=== PATIENT | female | born 1975 | race Caucasian/White ===

== ENCOUNTER → 2017-11-13 13:00 | Outpatient (CLI) | payer BC, SELFPAY ==
--- NOTE | 2017-11-13 13:53 | DI.REPORT_ITS ---
SYMPTOM/DIAGNOSIS: ABNL UTERINE BLEEDING, N93.0 PELVIC ULTRASOUND: Transabdominal and transvaginal examination was performed. The uterus measures 11.1 cm. long by 5.7 cm. AP by 7.3 cm. transverse. There are at least two discrete uterine masses present, the largest is seen in the fundus and measures 3.4 by 3.3 by 4.7 cm. There is a second discrete mass seen in the right fundal region measuring 3.1 by 2.9 by 3.0 cm. These most likely reflect uterine fibroids. The endometrial stripe is not well visualized due to the fibroids. The right ovary measures 2.4 by 1.8 by 2.2 cm. The left ovary measures 3.7 by 2.3 by 3.4 cm. There are follicular cysts seen bilaterally. The largest is seen on the left and measures 2.3 cm. maximally. No suspicious ovarian masses are present. There is normal blood flow to the ovaries. No evidence of torsion is present. No free pelvic fluid or hydronephrosis is identified. IMPRESSION: Fibroid uterus.
== END ==
PROVIDERS: PCP Nurse Practitioner; Visit Provider Nurse Practitioner
DX: N93.0 Postcoital and contact bleeding (principal); D25.9 Leiomyoma of uterus, unspecified; N83.01 Follicular cyst of right ovary; N83.02 Follicular cyst of left ovary
CPT/HCPCS: 76830; 76856

== ENCOUNTER 2018-01-02 11:02 | Outpatient (CLI) | payer BC, SELFPAY ==
[2018-01-02 11:25] LABS: HCT 33.9 % (36.0-46.0); HGB 10.9 g/dL (12.0-15.5); Mean Corp. HGB Concentration 32.2 g/dL (32.0-36.0); Mean Corpuscular Hemoglobin 28.3 pg (27.0-33.0); Mean Corpuscular Volume 88.1 fL (80-95); Mean Platelet Volume 9.7 fL (8.0-11.0); Platelet Count 262 x1000/uL (130-400); RBC 3.85 m/cumm (4.00-5.20); RBC Distribution Width 12.2 % (11.7-14.6); White Blood Cell Count 4.45 k/cumm (4.4-10.8)
[2018-01-02 12:33] LABS: HCG Quant, Pregnancy < 1 mIU/mL (1-3)
== END 2018-01-02 11:22 ==
PROVIDERS: PCP Nurse Practitioner; Visit Provider Obstetrics & Gynecology
DX: N94.6 Dysmenorrhea, unspecified (principal); N94.9 Unspecified condition associated with female genital organs and menstrual cycle
CPT/HCPCS: 36415; 85027; 86850; 86900; 86901; 84702

== ENCOUNTER 2018-01-02 15:51 | Outpatient (REF) | payer BC, SELFPAY ==
--- NOTE | 2018-01-02 10:30 | ENDOMET_PTH ---
PATIENT: Jeri Lin LOC: [facility] U#:[id number] AGE/SX: 42/F ROOM: RE01/02/[address]: Sana Garcia MD : 1975 BED: DIS: 01/02/2018 SPEC #: [id number] RECD: 01/02/18 17:44 STATUS: RODO REQ #: [id number] KRISHNA: 01/02/18 10:[address]: Sana Garcia DEPT: Surgical Specimen RECD BY: Shawanda Tsang ENTERED: 01/02/18 17:45 SP TYPE: Endomet OTHR DR: Beronica Flores Tissues: 1 - ENDOMETRIUM BX/FRANSISCA Procedures: GROSS AND MICRO LEVEL 4 Comments: [id number]
== END 2018-01-02 16:11 ==
LOC: LBN 15:51
PROVIDERS: PCP Nurse Practitioner; Referring Provider Obstetrics & Gynecology; Visit Provider Obstetrics & Gynecology
DX: N94.6 Dysmenorrhea, unspecified (principal); N92.0 Excessive and frequent menstruation with regular cycle; N85.8 Other specified noninflammatory disorders of uterus; N83.8 Other noninflammatory disorders of ovary, fallopian tube and broad ligament
CPT/HCPCS: 88305

== ENCOUNTER 2018-01-03 06:08 | Day surgery (SDC) | payer BC, SELFPAY ==
[2018-01-03 06:23] VITALS: BP 137/93; PULSE 66; RESP 16; TEMP 36.8; O2SAT 100
--- NOTE | 2018-01-03 06:35 | W.PM.HP.N ---
Date of service: 01/03/18 Assessment and Plan (1) Menorrhagia with regular cycle: Current visit: Yes Status: Acute Menorraghia unresponsive to medical therapy discussed alternatives requests Novasure endometrial ablation r/b/a reviewed all questions asked and answered consents signed Procedure Hysteroscopy D+C Novasure Endometrial ablation History of Present Illness Chief Complaint: Menorraghia Narrative: 42 yo female with long standing complaints menorraghia non responsive to medical therapy scheduled for hysteroscopy D+C Novasure endometrial ablation Review of Systems Review of Systems All systems reviewed & are unremarkable except as noted in HPI and below PFSH Family History Mother No problems noted. Father Diabetes Essential hypertension Brother No problems noted. Grandfather Neoplasm Grandfather Neoplasm Medical History HSV-1 (herpes simplex virus 1) infection Hypothyroidism (acquired) Migraines Uterine fibroid (11/07/16) Social History Smoking/Tobacco Use Status: Former Tobacco Use Female Reproductive History Menstrual Duration of menses: 6-7 days Meds Home Medications Medication Instructions Recorded Confirmed Type ferrous sulfate [Iron] 325 mg PO DAILY 11/17/17 01/02/18 History levothyroxine 1 tab PO DAILY 90 Days #90 11/17/17 01/03/18 History clqcvtlx-ekkz-qwzk-FA-K-hb#244 1 ea PO DAILY 11/17/17 01/02/18 History [[employer] Mv Tablet] ibuprofen 800 mg PO PRN PRN 01/03/18 01/03/18 History Allergies Allergy/AdvReac Type Severity Reaction Status Date / Time No Known Allergies Allergy Unverified 01/03/18 06:21 Exam Const General: cooperative and healthy appearing Chest Chest: normal inspection of the chest Resp Effort & Inspection: normal respiratory effort Auscultation: clear to auscultation bilaterally Cardio Rate: regular rate Rhythm: regular rhythm Heart Sounds: S1 normal and S2 normal External Female Exam: external appearance normal Speculum Exam - Vagina: normal appearance of the vagina Speculum Exam - Cervix: normal appearance of the cervix Bimanual Exam- Vagina & Uterus: normal bimanual exam Bimanual Exam- Adnexa, other: normal adnexae Extrem General: normal to inspection Results Labs Endometrial biopsy performed 01/02/18
[2018-01-03] MEDS: Lactated Ringers 1,000 ML 125 ML IV (06:43)
--- NOTE | 2018-01-03 08:00 | ENDOMET_PTH ---
PATIENT: Jeri Lin LOC: [facility] U#:[id number] AGE/SX: 42/F ROOM: RE01/03/[address]: Sana Garcia MD : 1975 BED: DIS: 01/03/2018 SPEC #: [id number] RECD: 01/03/18 12:58 STATUS: RODO RETiarra #: [id number] KRISHNA: 01/03/18 08:[address]: Sana Garcia DEPT: Surgical Specimen RECD BY: Shawanda Tsang ENTERED: 01/03/18 12:59 SP TYPE: Endomet OTHR DR: Beronica Flores Tissues: 1 - ENDOMETRIUM BX/FRANSISCA Procedures: GROSS AND MICRO LEVEL 4 Comments: [id number]
[2018-01-03] MEDS: Ketorolac 15 MG/ML VIAL IVP (08:48)
--- NOTE | 2018-01-03 08:50 | W.PM.OP ---
Date of service: 01/03/18 Time of Service: 08:50 Operative Note DATE OF PROCEDURE: 01/03/18 PRE-OP DIAGNOSIS: Menorraghia POST-OP DIAGNOSIS: other (same + anterior submucosal fibroid) PROCEDURE: Hysteroscopy D+C Novasure Endometrial ablation Patient was brought to the operating room where she was properly identified she was then placed on the operating table in the dorsal supine position. MAC anesthesia was then administered and she was then placed in the dorsal lithotomy position and prepped and draped in normal sterile fashion. Formal timeout procedure was then performed with all surgical personnel present confirming patient and procedure. A bivalve speculum was placed in the vagina the cervix was visualized and grasped on the anterior lip with a single-tooth tenaculum. The hysteroscope was advanced into the uterine cavity without difficulty and a thorough inspection was performed with visualization of both tubal ostia as well as a moderately sized submucosal anterior fibroid. Sharp curettage was then performed and the endometrial curettings were sent to pathology for permanent evaluation. Attention was then turned to the NovaSure portion of the procedure. The NovaSure apparatus was advanced into the uterine cavity without difficulty Cavity length had been measured at 5.0 cm. Once the apparatus was deployed the uterine width was measured at 3.6. This was a power of 99. A uterine cavity assessment was adequate endometrial ablation was performed for 90 seconds. All equipment was removed from the uterus and cervix hemostasis was confirmed. Sponge count correct x2 The patient was awakened and transfered to PACU in stable condition. SURGEON: Sana Garcia ANESTHESIA: MAC ESTIMATED BLOOD LOSS: 50 PATHOLOGY: other (endometrial currettings) COMPLICATIONS: None Patient was transported to: PACU Patient's condition: stable Implants: none Indications: Menorraghia Findings: anterior submucosal fibroid uterine cavity length 5.0 Cavity width 3.6 pOWER 99 Procedure Description: She is positioning anesthesia is initiated. She was then positioned. A formal TIMEOUTprocedure was then performed and she received she is still. Hysteroscope was advanced into the into the uterine cavity with a 0 station is visualized.
--- NOTE | 2018-01-03 09:10 | W.PM.DSUDISC ---
Discharge Plan Disposition Patient Disposition: HOME Condition: Good Discharge Details Attending Provider: Sana Garcia Primary Care Provider: Beronica Flores Home Meds and New Rx's Prescriptions: No Action ferrous sulfate [Iron (ferrous sulfate)] 325 MG tablet 325 mg PO DAILY RF: 0 [id number]-[id number]-K-hb#244 [[employer]] 1 EACH tablet 1 ea PO DAILY RF: 0 levothyroxine 50 MCG tablet 1 tab PO DAILY 90 Days Qty: 90 RF: 0 ibuprofen 200 mg Tablet 800 mg PO PRN PRNRF: 0 Discharge Instructions Stand Alone Forms: DSU Post Gynecology Surgery Referrals: Sana Garcia [ [facility] STAFF PHYSICIAN] - 01/19/18 9:40 am Activity:: Activity as Tolerated Shower/Bathe:: 24 hours Diet:: As Tolerated Discharge Orders Discharge Orders: Discharge Order (Routine); Ordered 01/03/18 Ordered By: Sana Garcia DS: Diagnosis Discharge Diagnosis (1) Menorrhagia with regular cycle: Status: Acute
[2018-01-03 09:17] VITALS: BP 140/96; PULSE 63; RESP 16; TEMP 36.1; O2SAT 100
== END 2018-01-03 10:05 | disposition home or self-care (01) ==
PROVIDERS: PCP Nurse Practitioner; Visit Provider Obstetrics & Gynecology
PROC: 0UJD8ZZ Inspection of Uterus and Cervix, Via Natural or Artificial Opening Endoscopic (ICD-10-PCS; CPT 58555; principal; 2018-01-03 07:30)
PROC: (CPT 58353; 2018-01-03 07:30)
DX: N92.0 Excessive and frequent menstruation with regular cycle (principal)
CPT/HCPCS: 58563; 88305; NC; J1885; J2250; J2405

== ENCOUNTER 2018-05-21 14:35 | Outpatient (CLI) | payer OTHER, SELFPAY ==
[2018-05-21 15:02] LABS: HGB 12.5 g/dL (12.0-15.5); Mean Corp. HGB Concentration 32.9 g/dL (32.0-36.0); Mean Corpuscular Hemoglobin 28.5 pg (27.0-33.0); Mean Corpuscular Volume 86.6 fL (80-95); Mean Platelet Volume 10.4 fL (8.0-11.0); Platelet Count 198 x1000/uL (130-400); RBC 4.39 m/cumm (4.00-5.20); RBC Distribution Width 14.6 % (11.7-14.6); White Blood Cell Count 6.03 k/cumm (4.4-10.8)
[2018-05-21 16:03] LABS: Iron 309 ug/dL (50-175); Total Iron Binding Capacity 380 ug/dL (250-450); Transferrin Sat 81 % (15-50)
[2018-05-21 16:17] LABS: Ferritin 13 ng/mL (8-388)
== END 2018-05-21 14:55 ==
PROVIDERS: PCP Nurse Practitioner; Visit Provider Obstetrics & Gynecology
DX: D50.8 Other iron deficiency anemias (principal); E03.9 Hypothyroidism, unspecified
CPT/HCPCS: 36415; 85027; 82728; 83540; 83550

== ENCOUNTER 2020-06-12 02:25 | Outpatient (CLI) | payer OTHER, SELFPAY ==
[2020-06-12 10:43] LABS: HCT 31.9 % (36.0-46.0); HGB 9.1 g/dL (11.2-15.7)
[2020-06-12 11:45] LABS: TSH (W/Ref FT4) 3.05 uIU/mL (0.36-3.74)
== END 2020-06-12 02:26 | disposition home or self-care (01) ==
LOC: LBO 02:25
PROVIDERS: PCP Nurse Practitioner; Visit Provider Nurse Practitioner Family
DX: N92.0 Excessive and frequent menstruation with regular cycle (principal)
CPT/HCPCS: 36415; 84443; 85014; 85018

== ENCOUNTER 2020-06-12 10:46 | Outpatient (REF) | payer OTHER, SELFPAY ==
--- NOTE | 2020-06-12 10:00 | PAPFT_PTH ---
PATIENT: Jeri Lin LOC: [facility] U#:[id number] AGE/SX: 45/F ROOM: RE06/12/[address]: CHELSEA Stevens : 1975 BED: DIS: 06/12/2020 SPEC #: [id number] RECD: 06/12/20 12:59 STATUS: RODO RETiarra #: [id number] KRISHNA: 06/12/20 10:[address]: Gely [place] DEPT: [facility] Cytology RECD BY: Shawanda Tsang ENTERED: 06/12/20 12:59 SP TYPE: PAPFT OTHR DR: Beronica Flores Tissues: 1 - CX/ENDOCX FOR PAP SMEARS Procedures: PAP THIN PREP/UVM Screening HPV DNA PROBE Comments: [id number]
== END 2020-06-12 10:47 | disposition home or self-care (01) ==
LOC: LBN 10:46
PROVIDERS: PCP Nurse Practitioner; Visit Provider Nurse Practitioner Family
DX: Z12.4 Encounter for screening for malignant neoplasm of cervix (principal); Z11.51 Encounter for screening for human papillomavirus (HPV)
CPT/HCPCS: 88142; 87624

== ENCOUNTER 2020-06-19 03:57 | Outpatient (CLI) | payer OTHER, SELFPAY ==
--- NOTE | 2020-06-19 06:45 | DI.MAMMO_ITS ---
EXAM: MAMMO SCREENING CLINICAL HISTORY: screening,Z12.39 TECHNIQUE: Mammograms were interpreted according to the usual protocol including computer analysis w [employer] CAD system, tomosynthesis and C-view imaging. COMPARISON: Baseline examination. FINDINGS: The breasts are composed of heterogeneously dense fibroglandular densities, Breast Density category C . No suspicious masses or suspicious microcalcifications are seen. No skin thickening or abnormal axillary lymph nodes are seen. There has been no significant change from prior exams. IMPRESSION: BI-RADS Category 1, Negative mammogram. Yearly screening mammography is recommended. Breast Density Category C, heterogeneously Dense. The mammogram demonstrates the patient's breast tissue is dense. Dense breast tissue is very common a nd is not abnormal but dense breast tissue can make it harder to find cancer on a mammogram. Also, de nse breast tissue may increase breast cancer risk. This information about the result of the mammogram report was provided to the patient to raise their awareness. Use this report when you speak with the patient about their risks for breast cancer, which includes their family history. At that time, you may recommend additional screening tests (Ultrasound or MRI) as they might be useful based on their r isk. A negative radiographic report should not delay biopsy if a dominant or clinically suspicious mass is present. Up to ten percent of cancers are not identified on mammography. A negative report may reinforce clinical impression. Adenosis and dense breasts may obscure an underlying neoplasm. False positive reports average 6 to 10%.
== END 2020-06-19 04:17 ==
PROVIDERS: PCP Nurse Practitioner; Visit Provider Nurse Practitioner Family
DX: Z12.31 Encounter for screening mammogram for malignant neoplasm of breast (principal)
CPT/HCPCS: 77063; 77067

== ENCOUNTER 2020-09-28 03:16 | Outpatient (CLI) | payer OTHER, SELFPAY ==
[2020-09-28 13:17] LABS: Abs Immature Grans 0.03 10^3/uL (0.0-0.06); Absolute Basophil Count 0.03 10^3/uL (0.0-0.2); Absolute Lymphocyte Count 1.16 10^3/uL (1.2-3.4); Absolute Monocyte Count 0.38 10^3/uL (0.1-0.8); Absolute Neutrophil Count 3.16 10^3/uL (1.2-6.7); Basophils % 0.6; Eosinophils % 2.1; HCT 28.1 % (36.0-46.0); Immature Grans % 0.6; Lymphocytes % 23.9; MCH 22.9 pg (27.0-33.0); MCHC 28.5 % (32.0-36.0); MCV 80.5 fL (80-95); MPV 9.7 fL (8.0-11.0); Monocytes % 7.8; Nucleated RBC 0 %; Platelet Count 319 10^3/uL (130-400); RBC 3.49 10^6/uL (3.93-5.22); RDW 16.5 % (11.7-14.6); RDW-SD 48.2 fL; WBC 4.86 10^3/uL (4.4-10.8)
[2020-09-28 13:43] LABS: Anisocytosis 1+; Diff Comment Diff Reviewed; Hypochromasia 2+; Polychromasia Present
[2020-09-28 13:44] LABS: Poikilocytes 2+
[2020-09-28 14:26] LABS: TSH (W/Ref FT4) 3.53 uIU/mL (0.36-3.74)
[2020-09-28 22:32] LABS: Prolactin 8.7 ng/mL (See Table)
== END 2020-09-28 03:17 | disposition home or self-care (01) ==
LOC: LBO 03:16
PROVIDERS: PCP Nurse Practitioner; Visit Provider Obstetrics & Gynecology
DX: D25.9 Leiomyoma of uterus, unspecified (principal); D50.8 Other iron deficiency anemias; N92.0 Excessive and frequent menstruation with regular cycle
CPT/HCPCS: 36415; 84146; 84443; 85025

== ENCOUNTER 2020-10-23 11:36 | Outpatient (REF) | payer OTHER, SELFPAY ==
--- NOTE | 2020-10-23 11:10 | ENDOMET_PTH ---
PATIENT: Jeri Lin LOC: [facility] U#:[id number] AGE/SX: 45/F ROOM: RE10/23/[address]: Cindy Corey DO : 1975 BED: DIS: 10/23/2020 SPEC #: [id number] RECD: 10/23/20 13:05 STATUS: RODO RE #: [id number] KRISHNA: 10/23/20 11:[address]: Cindy Corey DEPT: Surgical Specimen RECD BY: Shawanda Tsang ENTERED: 10/23/20 13:05 SP TYPE: Endomet OTHR DR: Beronica Flores Tissues: 1 - ENDOMETRIUM BX/FRANSISCA Procedures: GROSS AND MICRO LEVEL 4 Comments: [id number]
== END 2020-10-23 11:37 | disposition home or self-care (01) ==
LOC: NCHCN 11:36
PROVIDERS: PCP Nurse Practitioner; Visit Provider Obstetrics & Gynecology
DX: N93.8 Other specified abnormal uterine and vaginal bleeding (principal); D25.9 Leiomyoma of uterus, unspecified; N85.01 Benign endometrial hyperplasia
CPT/HCPCS: 88305

== ENCOUNTER 2020-11-30 03:02 | Outpatient (CLI) | payer OTHER, SELFPAY ==
[2020-11-30 10:05] LABS: Abs Immature Grans 0.01 10^3/uL (0.0-0.06); Absolute Basophil Count 0.04 10^3/uL (0.0-0.2); Absolute Eosinophil Count 0.06 10^3/uL (0.0-0.7); Absolute Lymphocyte Count 0.96 10^3/uL (1.2-3.4); Absolute Monocyte Count 0.46 10^3/uL (0.1-0.8); Basophils % 0.8; Eosinophils % 1.2; HCT 33.8 % (36.0-46.0); HGB 10.2 g/dL (11.2-15.7); Immature Grans % 0.2; Lymphocytes % 19.5; MCH 26.4 pg (27.0-33.0); MCHC 30.2 % (32.0-36.0); MCV 87.6 fL (80-95); MPV 9.7 fL (8.0-11.0); Monocytes % 9.3; Nucleated RBC 0 %; Platelet Count 345 10^3/uL (130-400); RBC 3.86 10^6/uL (3.93-5.22); RDW-SD 57.4 fL; WBC 4.93 10^3/uL (4.4-10.8)
[2020-11-30 15:44] LABS: Source Nasal/Nares
[2020-11-30 19:26] LABS: COVID-19 PCR Negative (Negative)
== END 2020-11-30 03:03 | disposition home or self-care (01) ==
LOC: LBO 03:02
PROVIDERS: PCP Nurse Practitioner; Visit Provider Obstetrics & Gynecology
DX: N92.0 Excessive and frequent menstruation with regular cycle (principal); D25.9 Leiomyoma of uterus, unspecified; Z20.822 Contact with and (suspected) exposure to COVID-19; Z01.818 Encounter for other preprocedural examination; Z01.812 Encounter for preprocedural laboratory examination
CPT/HCPCS: 36415; 86850; 86900; 86901; 87635; 85025

== ENCOUNTER 2020-12-02 17:05 | Observation (INO) | payer OTHER, SELFPAY ==
[2020-12-02] VITALS (9 sets, daily range): BP systolic 87–146; BP diastolic 57–93; PULSE 64–86; RESP 14–28; TEMP 36.1–36.7; O2SAT 95–100; BMI 28.0
[2020-12-02] MEDS: Lactated Ringers 1,000 ML 125 ML IV ×2 (10:59→17:04)
--- NOTE | 2020-12-02 12:04 | W.ANESPRE ---
General Info Date of Service Date Performed: 12/02/20 Height: 5 ft 3.5 in Weight: 72.8 kg Body Mass Index (BMI): 28.0 Surgical Procedure: Operation Date: 12/02/20 12:40 Proposed Procedures Side Surgeon p Hysterectomy Abdominal total,Bilateral Salpingectomy & removal of vulvar lesion Cindy Corey DO Meds Allergies and Home Medications Allergies Allergy/AdvReac Type Severity Reaction Status Date / Time No Known Allergies Allergy Unverified 12/01/20 11:37 Home Medication Medication Instructions Recorded ferrous sulfate [Iron] 325 mg PO BID 11/17/17 levothyroxine 1 tab PO DAILY 90 Days #90 11/17/17 ibuprofen 800 mg PO PRN PRN 01/03/18 prenat.vits,mckinley,cwf-jzqc-rrazi 1 tab PO DAILY 09/25/20 norethindrone acetate 5 mg tablet 5 mg PO .Twice daily #60 tab 11/05/20 Current Visit Medications: Current Medications Generic Name Dose Route Start Last Admin Trade Name Freq PRN Reason Stop Dose Admin Ringer's Solution 1,000 mls @ 125 mls/hr 12/02/20 06:00 12/02/20 10:59 IV 12/31/20 23:59 125 mls/hr INFUSION FIDEL Administration Cefazolin Sodium 2,000 mg/ 100 mls @ 200 mls/hr 12/02/20 06:00 Sodium Chloride IVPB 12/02/20 23:59 PREOP FIDEL IV Miscellaneous Supplies 1 each 12/02/20 06:00 Iv Access IV 12/31/20 23:59 DIRECTED FIDEL Sodium Chloride 0 ml 12/02/20 06:00 Normal Saline Flush 10 Ml Syr IV 12/31/20 23:59 PRN PRN Sodium Chloride 0 ml 12/02/20 06:00 Normal Saline 10 Ml Vial IJ 12/31/20 23:59 DIRECTED PRN Sterile Water 0 ml 12/02/20 06:00 Water,Injection,Sterile 10 Ml Vial IJ 12/31/20 23:59 DIRECTED PRN PFSH Active Problems Active Problems: Problem Status Onset Code Menorrhagia with regular cycle N92.0 Acquired hypothyroidism 11/09/17 E03.9 Other iron deficiency anemias 11/09/17 D50.8 Uterine fibroid 11/17/17 D25.9 Medical History Medical History HSV-1 (herpes simplex virus 1) infection Hypothyroidism (acquired) Migraines Uterine fibroid (11/07/16) AUB, fibroid uterus confirmed by us Surgical History Surgical History (Updated 12/02/20 @ 10:32 by Mary Jacksno) History of endometrial ablation Tobacco Smoking/Tobacco Use Status: Former Tobacco Use Alcohol Alcohol Intake: current Alcohol intake frequency: a few times a week Substance Use Substance use: Never Substance use type: does not use Vital Signs and Lab Results Vital Signs Most Recent Vital Signs in EMR: Most Recent Vital Signs Temp Pulse Resp BP Pulse Ox 36.2 C L 85 16 146/93 H 100 12/02/20 10:20 12/02/20 10:20 12/02/20 10:20 12/02/20 10:20 12/02/20 10:20 Point of Care Results Point of Care Results: POC- Test(urine) Negative 12/02/20 10:39 Lab Results Blood Type / Crossmatch: Patient ABO/Rh A Positive 11/30/20 10:02 11/30/20 Antibody Screen NEGATIVE 11/30/20 10:02 11/30/20 Complete Blood Count: White Blood Count 4.93 10^3/uL (4.4-10.8) 11/30/20 10:02 11/30/20 Red Blood Count 3.86 10^6/uL (3.93-5.22) L 11/30/20 10:02 11/30/20 Hemoglobin 10.2 g/dL (11.2-15.7) L 11/30/20 10:02 11/30/20 Hematocrit 33.8 % (36.0-46.0) L 11/30/20 10:02 11/30/20 Platelet Count 345 10^3/uL (130-400) 11/30/20 10:02 11/30/20 Complete Metabolic Panel: No Data to Display Liver Function Panel: No Data to Display Coagulation Panel: No Data to Display Cardiac Panel: No Data to Display Arterial Blood Gas: No Data to Display Venous Blood Gas: No Data to Display Pancreas Panel: No Data to Display Thyroid Panel: No Data to Display Infectious Disease: Coronavirus (COVID-19)(PCR) Negative (Negative) 11/30/20 10:27 11/30/20 Coronavirus 2019 Source Nasal/Nares 11/30/20 10:27 11/30/20 Blood Cultures: No Data to Display Toxicology Panel: No Data to Display Panel: No Data to Display Anesthesia Assessment and Plan Anesthesia History Personal History: No History of General Anesthesia Family History: No Family History of Anesthesia Complications Exercise Tolerance Exercise Tolerance: Metabolic Equivalents>4 Pertinent Negatives Pertinent Negatives: No Symptoms of GERD, No Major Cardiovascular Symptoms or Complaints, No Major Pulmonary Symptoms or Complaints and No History of CVA/TIA Cardiac & Pulmonary Exam Cardiac Exam: Normal S1/S2 Heart Sounds Pulmonary Exam: Clear Bilateral Breath Sounds Airway Exam Known Difficult Airway: No Mallampati Class: 2 Mouth Opening: Normal (> 3cm) Thyromental Distance: Greater than 3 cm Neck Range of Motion: Full ROM Neck Circumference: Normal Teeth Condition: Normal Dentition ASA Classification ASA Score: ASA 2 Emergency Case?: No NPO Status NPO Status: NPO Clears >2 hours, Solids >8 hours Status Status: Negative HCG Anesthesia Plan Resuscitation Status: Full Code Anesthesia Technique: General Anesthesia Airway Planned: Endotracheal Tube Monitors Used: Standard Monitors
[2020-12-02] MEDS: ceFAZolin 2,000 MG in Normal Saline 100 ML 200 MG IVPB (14:18)
--- NOTE | 2020-12-02 14:45 | UTER_PTH ---
PATIENT: Jeri Lin LOC: [facility] U#:[id number] AGE/SX: 45/F ROOM: OBS.306 RE12/02/[address]: Cindy Corey DO : 1975 BED: A DIS: 12/03/2020 SPEC #: [id number] RECD: 12/02/20 18:34 STATUS: RODO REQ #: [id number] KRISHNA: 12/02/20 14:[address]: Cindy Corey DEPT: Surgical Specimen RECD BY: Shawanda Tsang ENTERED: 12/02/20 18:36 SP TYPE: UTER OTHR DR: Beronica Flores Tissues: 1 - VULVA BIOPSY 2 - UTERUS W OR W/O OVARIES(NOT TUMOR/PROLAPSE) Procedures: GROSS AND MICRO LEVEL 4 GROSS AND MICRO LEVEL 5 Comments: [id number]
[2020-12-02] MEDS: Silver Nitrate Stick 1 EACH (14:56)
[2020-12-02] MEDS: Bupivacaine 0.25% Pres-Free 30 ML VIAL (14:57)
[2020-12-02] MEDS: Cellulose,Oxidized 4X8 1 PACKET MC (16:40)
--- NOTE | 2020-12-02 17:16 | ROE_ITS ---
Date of service: 12/02/20 Time of Service: 17:17 Operative Note Operative Note DATE OF PROCEDURE: 12/02/20 PRE-OP DIAGNOSIS: Symptomatic uterine fibroids, anemia, vulvar lesion POST-OP DIAGNOSIS: same PROCEDURE: Total abdominal hysterectomy with bilateral salpingectomy, excision of vulvar lesions, bladder cystoscopy SURGEON: Cindy Corey ASSISTING SURGEON: Verna Hoover ANESTHESIA TYPE: Local By Surgeon, General LMA/ETT and Spinal Refer to Anesthesia Record ESTIMATED BLOOD LOSS: 450 PATHOLOGY: other (1. Vulvar lesions 2. Uterus, fallopian tube, cervix) COMPLICATIONS: None Patient was transported to: PACU Indications: Bothersome vulvar lesions x2. Symptomatic bulky fibroid uterus with anemia, nonresponsive to medical therapy Findings: 2 small plaque-like lesions of the posterior fourchette. 14 weeks size bulky fibroid uterus with 8 cm fibroid prolapsed into the vaginal vault. Normal-appearing tubes. Normal-appearing ovaries. Bladder atraumatic with patent functioning ureters Procedure Description: After full informed consent was obtained, patient was taken the operating suite. She was placed in the seated position and spinal anesthesia administered, tested and found to be adequate. She is then placed in the dorsal supine position and endotracheal intubation performed per the administration of general anesthesia with ease. At this point she was prepped and draped in the usual sterile fashion. Attention was turned to the vaginal vault where there were noted to be 2 lesions of the left labia minora near to the posterior fourchette. These were elevated with a pickup and excised with a scalpel. The base was cauterized with silver nitrate. Oswald catheter had been inserted for continuous bladder drainage. Exam under anesthesia revealed a uterus that is approximately 14 to 16 weeks size, bulky, globular, with approx imately 8 cm fibroid prolapsed into the vaginal vault. At this point attention was turned to the abdomen where after infiltration of quarter percent Marcaine and Exparel a Pfannenstiel skin incision was made. It was continued down to the underlying fascia which was nicked in the midline and fascial incision extended laterally. The fascia was then split from the rectus muscles. Rectus muscle sp lit in the midline, peritoneum identified tented up and entered sharply and the peritoneal incision extended superiorly and inferiorly. At this point in moderate Trendelenburg position bowel was packed away an Binta'Nader-O'Doan self-retaining retractor was placed within. The uterus was noted to be globular with multiple fibroids both in the right fundal region, left mid body, and the previously mentioned fibroid prolapsed through the cervix. Initially attention was turned to the left fallopian tube which was cut transected and ligated. The left round ligament identified tented up suture-ligated and transected allowing visualization into the left round ligament. The left bladder flap was created on the left. The left utero-ovarian ligament was identified clamped transected and ligated. A similar procedure was carried out on the right fallopian tube, right round ligament, and completion of the bladder flap. The right utero- ovarian ligament was also identified clamped transected and ligated. With sharp tenaculum the uterus was elevated out of the pelvis. In a systematic fashion the uterine artery pedicles were clamped transected and ligated on the right and the left. Due to significant grogginess due to intramural and intracavitary fibroids the decision was made to enter anteriorly after the bladder had been pushed low below the cervix. The anterior lower uterine segment was entered and fibroid was noted to be attached to the fundal region of the endometrial cavity prolapsed through the cervix into the vagina. In a systematic fashion with Zeppelin clamps the lower uterine segment of the uterus was clamped transected and suture ligated. This allowed delivery of the uterine fibroid and uterine fundus. Again attention was turned to the remaining tissue which was noted to be a posterior aspect of the lower uterine segment. This was elevated, clamped, transected and ligated. The vaginal cuff was then identified and closed using 0 Vicryl suture in a running locked fashion. Abdomen was then irrigated with copious amounts of normal saline. There was an area that was not hemostatic in the area of the right corner which was oversewn with 3-0 chromic suture. Please of Surgicel was placed over the vaginal cuff due to her moderate areas of denuded serosa. At this point all pedicles were inspected and found to be hemostatic. O'Nader-O'Doan self-retaining retractor was removed from the abdomen as were all laparotomy sponges. Fascial incision was closed using 0 Vicryl suture in a running fashion. Subcutaneous tissue irrigated with copious amounts of normal saline. Subcutaneous space reapproximated with 3-0 Vicryl suture in a simple interrupted fashion. Skin edge was reapproximated with 4-0 undyed Monocryl in a subcuticular fashion and Steri-Strips were placed. Due to the expansive nature of the fibroids in the lower uterine segment and close proximity to the pelvic sidewall decision was made for cystoscopy to ensure the bladder was atraumatic and ureters are functioning normally. After sterile dressing was placed on the abdominal incision patient was redraped in a frog-leg position and with a 30 degree cystoscope after intravascular indigo carmine given the entire bladder dome, and trigone were inspected and found to be atraumatic. There were noted to be jets of blue dyed urine from each ureteric orifice. At this point once assured that both ureters and bladder were uninjured cystoscopy was terminated. Oswald catheter was then reinserted. The patient awoke from anesthesia with ease and was taken to the recovery room in stable condition. EBL: 450 cc Complications: None apparent Pathology 1 vulvar lesion 2 uterus, fallopian tubes, cervix, fibroids. Fluids: Crystalloid per anesthesia
--- NOTE | 2020-12-02 17:46 | W.ANESPOSTOP ---
Postoperative Evaluation Date, Time and Location Date Performed: 12/02/20 Time Performed: 17:46 Patient Location: PACU Vital Signs Most Recent Imported Vital Signs: Most Recent Vital Signs Temp Pulse Resp BP Pulse Ox 36.1 C L 80 24 107/70 98 12/02/20 17:40 12/02/20 17:40 12/02/20 17:40 12/02/20 17:40 12/02/20 17:40 Pain Score Most Recent Pain Score: Most Recent Pain Score Pain Level 0 12/02/20 17:40 Assessment Mental Status: Arousable with meaningful communication Airway and Respiratory Function: Patent airway with normal (patient baseline) respiratory exam Cardiovascular Function: Hemodynamically Stable Hydration Status: Adequately Hydrated Nausea & Vomiting: No Nausea or Vomiting Pain: Pt. Denies Any Pain Peripheral Nerve Block: Patient did not receive a nerve block
[2020-12-02] MEDS: Docusate Sodium 100 MG CAP PO (21:45)
[2020-12-02] MEDS: Ketorolac 30 MG/ML VIAL IVP (21:45)
[2020-12-02] MEDS: Ondansetron 4 MG/2 ML VIAL IVP (21:57)
[2020-12-03] MEDS: Lactated Ringers 1,000 ML 125 ML IV (00:05)
[2020-12-03 00:25] VITALS: BP 115/78; PULSE 78; RESP 16; TEMP 36.5; O2SAT 98
[2020-12-03] MEDS: Ketorolac 30 MG/ML VIAL IVP ×2 (04:07→09:14)
[2020-12-03] MEDS: Levothyroxine 50 MCG TAB PO (06:17)
[2020-12-03 07:07] LABS: HCT 24.5 % (36.0-46.0); HGB 7.5 g/dL (11.2-15.7); MCH 27.1 pg (27.0-33.0); MCHC 30.6 % (32.0-36.0); MCV 88.4 fL (80-95); MPV 10.5 fL (8.0-11.0); Platelet Count 270 10^3/uL (130-400); RBC 2.77 10^6/uL (3.93-5.22); RDW 17.8 % (11.7-14.6); RDW-SD 57.7 fL; WBC 9.25 10^3/uL (4.4-10.8)
[2020-12-03 08:13] LABS: ALT 31 U/L (14-59); AST 18 U/L (15-37); Albumin 2.6 g/dL (3.4-5.0); Alkaline Phosphatase 31 U/L (46-116); Anion Gap 6.2 mmol/L (3-11); BUN 10 mg/dL (7-18); Bilirubin, Total 0.4 mg/dL (0.2-1.0); CO2 26.8 mmol/L (21.0-32.0); CREATININE 1.1 mg/dL (0.55-1.02); Calcium 7.8 mg/dL (8.5-10.1); Chloride 107 mmol/L (98-107); Estimated GFR 53.47 (mL/min/1.73m2); Glucose 111 mg/dL (74-106); Potassium 4.3 mmol/L (3.5-5.1); Sodium 140 mmol/L (136-145)
[2020-12-03] MEDS: Docusate Sodium 100 MG CAP PO (09:14)
[2020-12-03 09:25] VITALS: BP 116/64; PULSE 62; RESP 14; TEMP 36.9; O2SAT 97
--- NOTE | 2020-12-03 09:46 | W.PM.PROGNOT ---
Date of Service Date of service: 12/03/20 Time of Service: 09:46 Subjective Subjective Patient reports: feels better, tolerating liquids well, tolerating a regular diet, flatus and afebrile; denies nausea, vomiting and fever Interval history since last seen: Patient seen and examined postoperative day #1 status post total abdominal hysterectomy with bilateral salpingectomy for symptomatic anemia and large uterine fibroids. She is doing well today. She is ambulating, tolerating a regular diet and oral pain medication with stable vital signs. Her Oswald catheter is out. Her hemoglobin this morning is 7.5, which is not unexpected in light of her blood loss and her chronic anemia. She is asymptomatic from this. She will have her IV saline lock and removed later today. She desires discharge home today. Exam Const General: cooperative, healthy appearing, comfortable, no acute distress, well developed and well groomed Eyes General: appearance normal, both eyes and all related structures Resp Effort & Inspection: normal respiratory effort Auscultation: clear to auscultation bilaterally, no rales, no rhonchi and no wheezes Cardio Rate: regular rate Rhythm: regular rhythm GI Inspection: normal to inspection and incision (Clean dry, intact, slight ecchymosis) Palpation: soft, not firm, no guarding, no masses, not rigid and tender Auscultation: normal bowel sounds Skin General skin exam: no rashes or lesions noted Neuro General: patient alert, patient awake and patient oriented x3 Cranial Nerves: CN's II-XI intact bilaterally Extrem General: normal to inspection, no clubbing, cyanosis or edema, no pedal edema and no calf tenderness Psych Appearance: grossly normal Mental Status: mental status grossly normal Speech and Movement: speech and movement normal Mood: congruent mood Affect: normal affect Attitude: cooperative Thought Process: normal Thought Content: normal Insight: insight good Judgment: judgment good Objective Last Vital Signs Temp 98.4 F 12/03/20 09:25 Pulse 62 12/03/20 09:25 Resp 14 12/03/20 09:25 BP 116/64 12/03/20 09:25 Pulse Ox 97 12/03/20 09:25 Laboratory Results - last 24 hr 12/03/20 12/03/20 06:45 06:45 WBC 9.25 RBC 2.77 L Hgb 7.5 L D Hct 24.5 L D MCV 88.4 MCH 27.1 MCHC 30.6 L RDW 17.8 H Plt Count 270 MPV 10.5 Sodium 140 Potassium 4.3 Chloride 107 Carbon Dioxide 26.8 Anion Gap 6.2 BUN 10 Creatinine 1.1 H Estimated GFR/1.73 m2 53.47 Glucose 111 H Calcium 7.8 L Total Bilirubin 0.4 AST 18 ALT 31 Alkaline Phosphatase 31 L Total Protein 5.0 L Albumin 2.6 L
--- NOTE | 2020-12-03 09:55 | DSE_ITS ---
Date of service: 12/03/20 Time of Service: 09:56 DS: Diagnosis Discharge Diagnosis (1) Status post total abdominal hysterectomy: Status: Acute Asessment and Plan: Patient is postoperative day #1 status post total abdominal hysterectomy with bilateral salpingectomy due to symptomatic anemia and fibroid uterus. She is doing well. She will be discharged home. She will follow up in the office in 2 weeks in 6 weeks. She will continue with pelvic rest and no heavy lifting for the next 6 weeks. Her diet will be as tolerated. Her prescriptions have been sent to the pharmacy. She will continue on supplemental iron for approximately 6 weeks time. (2) Other iron deficiency anemias: Status: Acute Discharge Plan Disposition Patient Disposition: HOME Condition: Good Discharge Details Admit Date/Time: 12/02/20 17:05 Admit Provider: Cindy Corey Attending Provider: Cindy Corey Primary Care Provider: Beronica Flores Hospital Course Hospital Course: Patient underwent a total abdominal hysterectomy with bilateral salpingectomy on 12/02/2020. She had a repeat intraoperative course with approximately 450 cc blood loss. She had uncomplicated postoperative course and was ambulating, tolerating a regular diet and oral pain medication with stable vital signs on postoperative day #1. She is able to void without difficulty she is passing flatus. She has good pain control. She will be discharged home later today tolerating oral pain medication and regular diet. Pathology is pending. Home Meds and New Rx's Prescriptions: New ibuprofen 800 mg tablet 800 mg PO Q8H PRNQty: 30 RF: 1 oxycodone-acetaminophen [Percocet] 5-325 mg tablet 1 tab PO Q8H PRNQty: 14 RF: 0 docusate sodium [Colace] 100 mg capsule 100 mg PO BID Qty: 30 RF: 0 Continued prenat.vits,mckinley,azf-hhbe-cyqlx Tablet 1 tab PO DAILY RF: 0 ferrous sulfate [Iron (ferrous sulfate)] 325 MG tablet 325 mg PO BID RF: 0 levothyroxine 50 MCG tablet 1 tab PO DAILY 90 Days Qty: 90 RF: 0 norethindrone acetate [Aygestin] 5 mg tablet 5 mg PO .Twice daily Qty: 60 RF: 1 ibuprofen 200 mg Tablet 800 mg PO PRN PRNRF: 0 Discharge Instructions Care Plan Goals: Follow-up with Dr. Corey in [facility] in 2 and 6 weeks Stand Alone Forms: DSU Post Gynecology Surgery Activity:: Pelvic rest and no heavy Equipment/Supplies:: No Equipment Needed Diet:: As Tolerated Discharge Orders Discharge Orders: Discharge Order (Routine); Ordered 12/03/20 Ordered By: Cindy Corey DS: Summary Time Spent with Patient providing and/or coordinating discharge services: Less than 30 minutes Status at Discharge Functional status at discharge: independent ambulation Overall status at discharge: patient is back to baseline Mental Status: mental status grossly normal Speech and Movement: speech and movement normal Mood: congruent mood Affect: normal affect Exam Narrative Exam Narrative: Please see physical exam from progress note dated 12/03/2020 Psych Mental Status: mental status grossly normal Speech and Movement: speech and movement normal Mood: congruent mood Affect: normal affect DS: Data Vitals/I&O Vitals and I&O: Vital Signs Temperature 98.4 F 12/03/20 09:25 Temperature Source Oral 12/03/20 09:25 Pulse 62 12/03/20 09:25 Pulse Rhythm Regular 12/03/20 09:25 Respiratory Rate 14 12/03/20 09:25 Respiratory Effort Non-Labored 12/03/20 09:25 Respiratory Depth Normal 12/03/20 09:25 Respiratory Pattern Normal 12/03/20 09:25 Blood Pressure 116/64 12/03/20 09:25 Pulse Oximetry 97 12/03/20 09:25 Respiratory End-tidal CO2 33 12/02/20 17:45 Oxygen Delivery Method Room Air 12/03/20 09:25 Oxygen Flow Rate 0 12/03/20 09:25 Pain Level 0 12/03/20 00:25 Intake & Output 12/02/20 12/02/20 12/03/20 11:59 23:59 11:59 Intake Total 2105 / 2105 2155.000 / 2155.000 Output Total 975 / 975 450 / 450 Balance 1130 / 1130 1705.000 / 1705.000 Weight 160 lb 7.944 oz 160 lb 7.944 oz Intake: IV 1755 / 1755 1955.000 / 1955.000 Oral 350 / 350 200 / 200 Output: Urine 525 / 525 450 / 450 Estimated Blood Loss 450 / 450 Other: Urine Color Indigo Indigo Urine Appearance Clear Clear Emesis Description None Data Completed and Pending Labs on day of discharge: Labs from last 24 hours 12/03/20 12/03/20 06:45 06:45 WBC 9.25 RBC 2.77 L Hgb 7.5 L D Hct 24.5 L D MCV 88.4 MCH 27.1 MCHC 30.6 L RDW 17.8 H Plt Count 270 MPV 10.5 Sodium 140 Potassium 4.3 Chloride 107 Carbon Dioxide 26.8 Anion Gap 6.2 BUN 10 Creatinine 1.1 H Estimated GFR/1.73 m2 53.47 Glucose 111 H Calcium 7.8 L Total Bilirubin 0.4 AST 18 ALT 31 Alkaline Phosphatase 31 L Total Protein 5.0 L Albumin 2.6 L [facility] Medical History HSV-1 (herpes simplex virus 1) infection Hypothyroidism (acquired) Migraines Uterine fibroid (11/07/16) AUB, fibroid uterus confirmed by us Surgical History History of endometrial ablation Status post total abdominal hysterectomy Family History Mother No problems noted. Father Diabetes Essential hypertension Brother No problems noted. Grandfather Neoplasm unsure of kind Grandfather Neoplasm unsure of kind Social History Smoking/Tobacco Use Status: Former Tobacco Use Quit Date: 04/10/10 Smoking risk assessment performed?: Yes Alcohol Intake: current Alcohol Intake frequency: a few times a week Drug use: Never Substance use type: does not use Do you feel safe at home: Yes Do you feel safe in your relationship?: Yes Female Reproductive History Menstrual Duration of menses: 6-7 days
[2020-12-03] MEDS: Ibuprofen 600 MG TAB PO (13:59)
== END 2020-12-03 15:35 | disposition home or self-care (01) ==
LOC: SUR 17:50 → OBS 17:53
PROVIDERS: Obstetrics & Gynecology Gynecology; Admitting Provider Obstetrics & Gynecology; PCP Nurse Practitioner; Visit Provider Obstetrics & Gynecology
PROC: 0UT90ZZ Resection of Uterus, Open Approach (ICD-10-PCS; CPT 58150; principal; 2020-12-02 12:30)
DX: D07.1 Carcinoma in situ of vulva (principal); D25.0 Submucous leiomyoma of uterus; D25.1 Intramural leiomyoma of uterus; D25.2 Subserosal leiomyoma of uterus; D50.8 Other iron deficiency anemias; N92.0 Excessive and frequent menstruation with regular cycle; E03.9 Hypothyroidism, unspecified; G43.909 Migraine, unspecified, not intractable, without status migrainosus; B00.9 Herpesviral infection, unspecified; N90.89 Other specified noninflammatory disorders of vulva and perineum
CPT/HCPCS: 58150; 52000; 11620; 36415; 80053; 81025; 85027; 88305; 88307; J0690; J1100; J1885; J2250; J2405

== ENCOUNTER 2023-05-08 09:35 | Day surgery (SDC) | payer OTHER, SELFPAY ==
--- NOTE | 2023-05-07 14:50 | W.PM.DSUDISC ---
Date of service: 05/08/23 Time of Service: 12:38 Discharge Plan Disposition Patient Disposition: Home Condition: Good Discharge Details Reason For Visit: screening colonoscopy Attending Provider: Chaitanya Tanner Primary Care Provider: Beronica Flores Home Meds and New Rx's Prescriptions: Continued prenat.vits,mckinley,goj-nbrg-aqfhe Tablet 1 tab PO DAILY Saccharomyces boulardii [Probiotic (S.boulardii)] 250 mg capsule 250 mg PO BID ferrous sulfate [Iron (ferrous sulfate)] 325 MG tablet 325 mg PO BID levothyroxine 50 MCG tablet 1 tab PO DAILY 90 Days Qty: 90 ibuprofen 200 mg Tablet 800 mg PO PRN PRN ibuprofen 800 mg tablet 800 mg PO Q8H PRNQty: 30 1RF ashwagandha extract 120 mg capsule 120 mg PO DAILY Discontinued polyethylene glycol 3350 17 gram/dose powder 238 g PO ONCE Qty: 238 0RF Rx Instructions: Colonoscopy Bowel Prep- Per Instructions bisacodyl [Dulcolax (bisacodyl)] 5 mg tablet,delayed release (DR/EC) 5 mg PO ONCE Qty: 4 0RF Rx Instructions: Colonoscopy Bowel Prep- Per Instructions Discharge Instructions Instructions: Colorectal Polyps (GEN) Additional Instructions: Jeri, we were able to complete your colonoscopy today without much difficulty. I did find a total of 5 polyps. One of these was quite large. I was able to remove all of these, and it will take a week or so to get the results from the pathology report. Once I have those results I will be in touch with my next recommendations. Because of the removal of the polyps today, do not be alarmed if you notice a little bit of blood in your stools. I would expect this to stop within the next 24 to 48 hours. If you have any questions at all, please do not hesitate to call at any point. 1. If tolerated, consume a soft, low fiber diet for 1-2 days. [address] Do not drive, drink alcohol, operate machinery, make critical decisions, or do activities that require coordination or balance for 24 hours. 3. Because air was put into your colon during the procedure, expelling air from your rectum (passing gas or farting) is normal. 4. You may not have a bowel movement for 1-3 days because of the colonoscopy prep. This is normal. 5. Go directly to the emergency room if you notice any of the following: Develop chills (warm to touch), or if you have a thermometer and your temperature is above 101 Difficulty breathing or difficultly swallowing Persistent vomiting Severe abdominal pain, other than gas cramps Severe chest pain Black, tarry stools Any bleeding ? exceeding one tablespoon 6. Call your physician if the site where your intravenous was started becomes red, swollen, painful, and warm to touch. 7. Your physician has reviewed your pre-procedure medications. Please continue to take those medications as previously ordered. You will be given specific information/education regarding any changes to your medications before leaving. Activity:: Activity as Tolerated Diet:: As Tolerated Discharge Orders Discharge Orders: Discharge Order (Routine); Ordered 05/07/23 Ordered By: Chaitanya Tanner DS: Diagnosis Discharge Diagnosis (1) Encounter for screening colonoscopy: Status: Acute Asessment and Plan: Follow-up on pathology results
--- NOTE | 2023-05-07 14:52 | W.COLOREPORT ---
Date of service: 05/08/23 Time of Service: 12:41 Colonoscopy Report Date of procedure: 05/08/23 Pre-op diagnosis general: screening colonoscopy Post-op diagnosis procedure note: other (Colon and rectal polyps) Procedure: Colonoscopy with polypectomy Surgeon: Chaitanya Tanner Anesthesia Type: General:No Airway Estimated blood loss (mL): 15 Pathology: other (0.5 cm rectal polyp, 0.25 cm polyp at 18 cm, 0.75 cm polyp at 20 cm, 0.25 cm polyp at 25 cm, 2 to 3 cm polyp at 40 cm) Complications: None Disposition: same day Indications: Jeri is 48 years old. She needs a screening colonoscopy Prep: Miralax/Dulcolax Procedure Start Time: 12:46 Procedure End Time: 12:20 Retraction Time: 8 Findings: 0.5 cm rectal polyp, 0.25 cm polyp at 18 cm, 0.75 cm polyp at 20 cm, 0.25 cm polyp at 25 cm, 2 to 3 cm polyp at 40 cm Procedure Description: After the induction of anesthesia, and with the patient in left lateral decubitus position, I began by performing an external anorectal exam.? Perineum and skin were normal, as was the anal verge.? There was no evidence of external hemorrhoids.? Next, I performed a digital rectal exam.? This was normal.? Next, I advanced a colonoscope into the rectal vault.? I performed retroflexion.? This appeared normal.? Using insufflation, I then advanced the colonoscope beyond the rectal folds and into the sigmoid colon before advancing towards the cecum.? In the midportion of the rectum was a 0.5 cm flat polyp. I removed this with cold forceps. There was minimal bleeding. I also encountered polyps at 18 cm, 20 cm, and 25 cm. These were all removed with cold forceps with minimal bleeding. As I advanced up through the sigmoid colon, around 40 cm from the anus I encountered a large fungating polyp from what appeared to be sizable mucosal stalk. It did appear fairly mobile with on the stalk. I was able to navigate around it with ease. Because of its size, I did have to remove it piecemeal. This was done with energize snare polypectomy. With the top portion of the polyp removed, I was able to ensnare the polyp at its mucosal base. This was also with cautery. Specimens were retrieved, and I turned my attention back to progressing forward with the colonoscope. The scope was noted to be in the cecum by identification of the ileocecal valve and appendiceal orifice.? I then began withdrawing the colonoscope using repeated irrigation as necessary for full evaluation of the colonic mucosa. ?Once the scope was withdrawn to the level of the rectum, great care was taken to examine portions of the rectal folds.? Finally, the scope was withdrawn and the patient was brought to the same-day surgery recovery unit as the anesthetic wore off. ?The findings and instructions were shared with the patient prior to discharge. [place] [facility] Bowel Prep [place] [facility] Bowel Prep Right Colon: 3 Left Colon: 3 Transverse Colon: 3 Total Score: 9
--- NOTE | 2023-05-07 16:06 | W.ANESPRE ---
General Info Date of Service Date Performed: 05/08/23 Height: 5 ft 3 in Weight: 71.668 kg Body Mass Index (BMI): 28.0 Surgical Procedure: Operation Date: 05/08/23 12:05 Proposed Procedure Side Surgeon jose cruz Tanner MD Meds Allergies and Home Medications Allergies Allergy/AdvReac Type Severity Reaction Status Date / Time No Known Allergies Allergy Verified 05/08/23 10:10 Home Medication Medication Instructions Recorded ferrous sulfate 325 mg (65 mg 325 mg PO BID 11/17/17 iron) tablet (Iron (ferrous sulfate)) levothyroxine 50 mcg tablet 1 tab PO DAILY 90 days ##90 11/17/17 ibuprofen 200 mg tablet 800 mg PO PRN PRN 01/03/18 prenat.vits,mckinley,tjg-bidy-edmjo 1 tab PO DAILY 09/25/20 ibuprofen 800 mg tablet 800 mg PO Q8H PRN #30 tabs 12/03/20 Saccharomyces boulardii 250 mg 250 mg PO BID 04/24/23 capsule (Probiotic (S.boulardii)) [facility] extract 120 mg capsule 120 mg PO DAILY 05/08/23 Current Visit Medications: Current Medications Generic Name Dose Route Start Last Admin Trade Name Freq PRN Reason Stop Dose Admin Hyoscyamine Sulfate 0.125 mg 05/07/23 14:53 Hyoscyamine 0.125 Mg Sl/Oral/Chew SL 06/06/23 14:52 DIRECTED PRN Ringer's Solution 1,000 mls @ 80 mls/hr 05/08/23 06:00 IV 06/04/23 23:59 [facility] IV Miscellaneous Supplies 1 each 05/08/23 06:00 Iv Access IV 06/04/23 23:59 DIRECTED FIDEL Ondansetron HCl 4 mg 05/07/23 14:53 Ondansetron 4 Mg/2 Ml Vial IVP 06/06/23 14:52 Q4H PRN PRN Nausea / Vomiting Sodium Chloride 0 ml 05/08/23 06:00 Normal Saline Flush 10 Ml Syr IV 06/04/23 23:59 PRN PRN Sodium Chloride 0 ml 05/08/23 06:00 Normal Saline 10 Ml Vial IJ 06/04/23 23:59 DIRECTED PRN Sterile Water 0 ml 05/08/23 06:00 Water,Injection,Sterile 10 Ml Vial IJ 06/04/23 23:59 DIRECTED PRN PFSH Active Problems Active Problems: Problem Status Onset Code Encounter for screening colonoscopy Z12.11 Status post total abdominal hysterectomy Z90.710 Acquired hypothyroidism 11/09/17 E03.9 Medical History Medical History HSV-1 (herpes simplex virus 1) infection Hypothyroidism (acquired) Migraines Uterine fibroid (11/07/16) AUB, fibroid uterus confirmed by us Surgical History Surgical History History of endometrial ablation Status post total abdominal hysterectomy Tobacco Smoking/Tobacco Use Status: Former Tobacco Use Alcohol Alcohol Intake: current Alcohol intake frequency: a few times a month Substance Use Substance use: Never Substance use type: does not use Vital Signs and Lab Results Vital Signs Most Recent Vital Signs in EMR: Temp Pulse Resp BP Pulse Ox 36.4 C L 74 18 136/90 99 05/08/23 10:01 05/08/23 10:01 05/08/23 10:01 05/08/23 10:01 05/08/23 10:01 Lab Results Blood Type / Crossmatch: No Data to Display Complete Blood Count: No Data to Display Complete Metabolic Panel: No Data to Display Liver Function Panel: No Data to Display Coagulation Panel: No Data to Display Cardiac Panel: No Data to Display Arterial Blood Gas: No Data to Display Venous Blood Gas: No Data to Display Pancreas Panel: No Data to Display Thyroid Panel: No Data to Display Infectious Disease: No Data to Display Blood Cultures: No Data to Display Toxicology Panel: No Data to Display Panel: No Data to Display Anesthesia Assessment and Plan Anesthesia History Personal History: No History of Anesthesia Complications Family History: No Family History of Anesthesia Complications Exercise Tolerance Exercise Tolerance: Metabolic Equivalents>4 Pertinent Negatives Pertinent Negatives: No Symptoms of GERD, No Major Cardiovascular Symptoms or Complaints and No Major Pulmonary Symptoms or Complaints Cardiac & Pulmonary Exam Cardiac Exam: Normal S1/S2 Heart Sounds Pulmonary Exam: Clear Bilateral Breath Sounds Implantable Cardiac Device Does patient have a Pacemaker or an ICD?: No Airway Exam Known Difficult Airway: No Mallampati Class: 2 Mouth Opening: Normal (> 3cm) Thyromental Distance: Greater than 3 cm Neck Range of Motion: Full ROM Neck Circumference: Normal Teeth Condition: Normal Dentition ASA Classification ASA Score: ASA 2 Emergency Case?: No NPO Status NPO Status: NPO Clears >2 hours, Solids >8 hours Status Status: History of Hysterectomy Anesthesia Plan Resuscitation Status: Full Code Anesthesia Technique: General Anesthesia Airway Planned: Natural Airway Monitors Used: Standard Monitors Preoperative Comments:: 48 yo female for colo. Sig PMHx: hypothyroid (levothyroxine), migraines. former smoker, occ EtOH, Previous Anes: - hyster, midaz, prop, natural airway, no issues. - hysterectomy, spinal/GA, mac 3 grade 1, easy mask.
[2023-05-08 10:01] VITALS: BP 136/90; PULSE 74; RESP 18; TEMP 36.4; O2SAT 99
[2023-05-08] MEDS: Lactated Ringers 1,000 ML 80 ML IV (10:32)
[2023-05-08 11:03] VITALS: BMI 28.0
--- NOTE | 2023-05-08 11:48 | BOWEL_PTH ---
PATIENT: Jeri Lin LOC: [facility] U#:[id number] AGE/SX: 48/F ROOM: RE05/08/[address]: Chaitanya Tanner MD : 1975 BED: DIS: 05/08/2023 SPEC #: [id number] RECD: 05/08/23 13:08 STATUS: [facility]O [facility] [place] #: [id number] KRISHNA: 05/08/23 11:[address]: Chaitanya Tanner DEPT: Surgical Specimen RECD BY: Shawanda Tsang ENTERED: 05/08/23 13:11 SP TYPE: Bowel OTHR DR: Beronica Flores Tissues: 1 - BIOPSY BOWEL 2 - BIOPSY BOWEL 3 - BIOPSY BOWEL 4 - BIOPSY BOWEL 5 - BIOPSY BOWEL Procedures: GROSS AND MICRO LEVEL 4 Comments: [id number]
[2023-05-08 12:28] VITALS: BP 118/82; PULSE 68; RESP 16; TEMP 36.4; O2SAT 98
--- NOTE | 2023-05-08 12:30 | W.ANESPOSTOP ---
Postoperative Evaluation Date, Time and Location Date Performed: 05/08/23 Time Performed: 12:30 Patient Location: Day Surgery Unit Vital Signs Most Recent Imported Vital Signs: Most Recent Vital Signs Temp Pulse Resp BP Pulse Ox 36.4 C L 68 16 118/82 98 05/08/23 12:28 05/08/23 12:28 05/08/23 12:28 05/08/23 12:28 05/08/23 12:28 Pain Score Most Recent Pain Score: Most Recent Pain Score Pain Level 0 05/08/23 12:28 Assessment Mental Status: Awake (Alert & Oriented to Patient Baseline) Airway and Respiratory Function: Patent airway with normal (patient baseline) respiratory exam Cardiovascular Function: Hemodynamically Stable Hydration Status: Adequately Hydrated Nausea & Vomiting: No Nausea or Vomiting Pain: Pt. Denies Any Pain Peripheral Nerve Block: Patient did not receive a nerve block
[2023-05-08 12:43] VITALS: BP 141/98; PULSE 66; RESP 18; TEMP 36.6; O2SAT 98
== END 2023-05-08 13:56 | disposition home or self-care (01) ==
PROVIDERS: PCP Nurse Practitioner; Visit Provider Surgery
PROC: 0DJD8ZZ Inspection of Lower Intestinal Tract, Via Natural or Artificial Opening Endoscopic (ICD-10-PCS; CPT 45378; principal; 2023-05-08 12:00)
DX: Z12.11 Encounter for screening for malignant neoplasm of colon (principal); D12.5 Benign neoplasm of sigmoid colon; K62.1 Rectal polyp; Z80.0 Family history of malignant neoplasm of digestive organs; E03.9 Hypothyroidism, unspecified; K62.89 Other specified diseases of anus and rectum
CPT/HCPCS: 45385; 45380; 88305; 87624; J2704

== ENCOUNTER 2024-10-29 12:36 | Day surgery (SDC) | payer OTHER, SELFPAY | END 2024-10-29 12:37 | disposition home or self-care (01) | LOC: SUR 12-04 12:36 | PROVIDERS: PCP Nurse Practitioner; Visit Provider Surgery | DX: Z53.9 Procedure and treatment not carried out, unspecified reason (principal) ==